=== PATIENT | female | born 1950 | race Caucasian/White ===

== ENCOUNTER → 2016-06-10 18:28 | Outpatient (CLI) | payer OTHER ==
[2014-04-05 07:46] VITALS: BMI 33.1
[~2016-06-10 18:28] MED LIST: ASPIRIN EC81 M1 PO; CALCIUM 600+D T1 TA1 PO; CELEXA20 MG PO; CHELATED MAGNESIUM PO; CO Q-10200 MG PO; EVISTA60 MG PO; FLAXSEED OIL1000 MG PO; GLUCOSAMINE & C1 CAP PO; IMITREX100 MG PO; MIRAPEX0.5 MG PO; NEXIUM40 MG PO; PRILOSEC20 MG PO; TUMERIC CURCUMIN PO; VITAMIN B-12500 MC1 PO; VITAMIN B-625 MG PO; VITAMIN D2000 UNIT PO
== END | disposition home or self-care (01) ==
LOC: D.MAMMO 15:45
DX: Z12.31 Encounter for screening mammogram for malignant neoplasm of breast (principal)

== ENCOUNTER → 2016-07-07 12:43 | Outpatient (CLI) | payer OTHER ==
[2014-04-05 07:46] VITALS: BMI 33.1
--- NOTE | 2016-07-09 07:57 | EC ---
PATIENT:DIMITRY CROSS DATE OF SERVICE: 07/07/16 SEX: F MEDICAL RECORD: [id number] DATE OF : 54 LOCATION:[facility] AGE OF PATIENT: 66 ADMISSION DATE: 07/07/16 REFERRING PHYSICIAN: INTERPRETING PHYSICIAN: SANJEEV JIMÉNEZ MD ECHOCARDIOGRAM REPORT ECHO CHARGES 4 ECHO COMPLETE CLINICAL DIAGNOSIS: HTN/AORTIC ECTASIA ECHOCARDIOGRAPHIC MEASUREMENTS (adult normal given) AC root (d.<3.7cm) 3.2 LV Septum d (<1.2 cm> 1.6 Valve Excursion 1.4 LV Septum (systole) 2.1 Left Atria (s.<4.0cm> 2.7 LVPW d(<1.2cm) 1.2 RV (d.<2.3cm) 2.3 LVPW (sytole) 1.9 LV diastole(<5.6CM) 5.4 MV E-F(>70mm/sec) LV systole 3.1 LVOT Diameter 1.9 MV exc.(>10mm) Est.ejection fraction (50-75%) Pericardial Effusion N DOPPLER: LVIT A 69.0 E 136 LA RVSP 44.3 LVOT 164 AOP1/2T Asc. Ao 225 RVOT 65.0 RA PA 107 AV Gradient Peak 20.2 AV Mean 11.0 AV Area 1.7 MV Gradient Peak 8.6 MV Mean 2.4 MV Area COMMENTS: Fireproof Door Assembler: Jefe MONREALOE Kiln Remover:Jefe Jiménez TAPE# PACS DATE OF SERVICE: 07/07/2016 ECHOCARDIOGRAM FINDINGS: 1. Left ventricular chamber size is within normal limits. Left ventricular systolic function is normal. Overall ejection fraction estimated at 65%. 2. Left atrium, right atrium, and right ventricular chamber sizes are within normal limits. 3. Valvular structures have normal structure and motion. ECHOCARDIOGRAM REPORT [id number] DIMITRY CROSS 4. Doppler interrogation reveals mild mitral regurgitation. Mild tricuspid regurgitation. No other valvular insufficiency or stenosis. 5. No evidence of pericardial effusion or left ventricular thrombus. Pulmonary systolic pressure; however, is mildly elevated estimated at 44 mmHg. TRANSINT:[id number] Voice Confirmation ID: [id number] DOCUMENT ID: [id number] SANJEEV JIMÉNEZ MD at 0757 CC: [id number] DICTATION DATE: 07/08/16 1011 FOOD ORDER DELIVERY RUNNER: 07/09/16 0037 DEP CLI 07/07/16 [id number] [place] [address]
== END | disposition home or self-care (01) ==
LOC: D.ECHO 12:43
DX: I10 Essential (primary) hypertension (principal); R05 Cough; I77.819 Aortic ectasia, unspecified site

== ENCOUNTER 2016-12-24 07:51 | Outpatient (CLI) | payer OTHER ==
--- NOTE | ~2016-12-24 | HEMODYNAMI ---
PATIENT:DIMITRY CROSS MEDICAL RECORD: [id number] : 54 LOCATION:[facility] ADMISSION DATE: 12/24/16 Generatedon:12/24/201611:30 Patient name: DIMITRY CROSS Patient #: [id number] : 1950 Date of study: 12/24/2016 Page: Of Hemodynamic Procedure Report Patient Data Patient Demographics Procedure consent was obtained First Name: DIMITRY Gender: Female Last Name: TAY : 1950 Middle Initial: KARL Age: 66 year(s) Patient #: [id number] Race: SSN: [id number] Additional ID: [id number] Contact details Address: [address] State: [place] City: [place] Zip code: [address] Admission Admission Data Admission Date: 12/24/2016 Admission Time: 7:51 Lab Results Lab Result Date: 12/24/2016 Lab Result Time: 0:00 Biochemistry Name Units Result Min Max BUN mg/dl 18 --(---*)-- 7 18 Creatinine mg/dl 0.9 --(-*--)-- 0.6 1.3 CBC Name Units Result Min Max Hemoglobin g/dl 13 -*(----)-- 13.5 17.5 Procedure Procedure Types Cath Procedure Diagnostic Procedure C [facility] w/Coronaries Miscellaneous Procedures Moderate Sedation up to 15 minutes Procedure Description Procedure Date Procedure Date: 12/24/2016 Procedure Start Time: 11:15 Procedure End Time: 11:28 Procedure Staff Name Function Robert Jiménez MD Performing Physician Leyda Mccoy RT Scrub Felicita Peters RN Nurse Randi Gordon RT Monitor Indication Angina Procedure Data Cath Procedure Fluoroscopy Diagnostic fluoroscopy Total fluoroscopy Time: 1.7 time: 1.7 min min Diagnostic fluoroscopy Total fluoroscopy dose: 339 dose: 339 mGy mGy Contrast Material Contrast Material Type Amount (ml) Isovue 300 49 Entry Location Entry Primary Successful Side Size Upsize Upsize Entry Closure Hitchcock ccessful Closure Location (Fr) 1 (Fr) 2 (Fr) Remarks Device Remarks Radial Right 6 Fr Mechanical artery Short Compression Femoral Right 5 Fr Vascade artery Closure System Estimated blood loss: 5 ml Diagnostic catheters Device Type Used For End Catheter Placement Diagnostic Terumo 5Fr Multi-vessel Logan 110cm catheter Angiography Diagnostic Infinity 5Fr Left Coronary JL 5 catheter Angiography Procedure Complications No complications Procedure Medications Medication Administration Route Dosage Oxygen NC 2 l/min Lidocaine 2% added to field 20 Heparin Flush Bag added to field 2 bags (1000units/500ml NS) 0.9% NaCl I.V. 100 ml/hr Versed I.V. 1 mg Fentanyl I.V. 50 mcg Versed I.V. 1 mg Fentanyl I.V. 50 mcg Fentanyl I.V. 50 mcg Radial Cocktail I.A. 1 syringe (Verapomil 2mg/Nitro 400mcg/Heparin 1500units) Fentanyl I.V. 50 mcg Hemodynamics Rest HGB: 13 (g/dl) Heart Rate: 61 (bpm) Pressure Samples Time Site Value (mmHg) Purpose Heart Use Rate(bpm) 11:21 LV 54/4,1 Snapshot 66 Snapshots Pre Cath Intra NCS Post Cath Vital Signs Time Heart Resp SPO2 etCO2 NIBP (mmHg) Rhythm Pain Sedation Rate (ipm) (%) (mmHg) Status Level (bpm) 10:52:00 63 18 97 38.8 115/70(101) NSR 0 (11) 10(A) , No pain 10:56:10 61 19 94 37.3 113/74(87) NSR 0 (11) 10(A) , No pain 11:00:20 60 16 96 39.6 113/71(92) NSR 0 (11) 10(A) , No pain 11:04:30 62 17 96 35.8 112/67(89) NSR 0 (11) 10(A) , No pain 11:08:40 59 22 96 25.3 104/68(80) NSR 0 (11) 10(A) , No pain 11:12:45 59 16 95 38.8 103/69(87) NSR 0 (11) 9(A) , No pain 11:16:51 61 15 95 37.3 105/67(83) NSR 0 (11) 9(A) , No pain 11:20:59 66 14 93 35.8 102/64(84) NSR 0 (11) 9(A) , No pain 11:25:05 67 16 94 37.3 109/68(85) NSR 0 (11) 10(A) , No pain Medications Time Medication Route Dose Verified Delivered Reason Notes Effectiveness by by 10:50:24 Oxygen NC 2 l/min Robert Buffie used for Tino Peters RN procedure 10:50:31 Lidocaine 2% added 20ml Robert Buffie used for to vial Tino Peters RN procedure field 10:50:38 Heparin Flush added 2 bags Robert Buffie used for Bag to Tino Peters RN procedure (1000units/500ml field NS) 10:50:47 0.9% NaCl I.V. 100 Robert Buffie Per ml/hr Tino Peters RN physician 11:06:39 Versed I.V. 1 mg Robert Mims for sedation Tino Peters RN 11:06:44 Fentanyl I.V. 50 mcg Robert Mims for sedation Tino Peters RN 11:13:58 Versed I.V. 1 mg Robert Marcie for sedation Tion Peters RN 11:14:03 Fentanyl I.V. 50 mcg Robert Mims for sedation Tino Peters RN 11:17:02 Radial Cocktail I.A. 1 Robert Jones for (Verapomil syringe Tino Jiménez MD vasodilation 2mg/Nitro 400mcg/Heparin 1500units) 11:17:23 Fentanyl I.V. 50 mcg Robert Mims for sedation Tino Peters RN 11:24:16 Fentanyl I.V. 50 mcg Robert Jones for sedation Tino Jiménez MD Procedure Log Time Note 10:24:07 Informed consent obtained and on chart 10:24:30 Diagnostic Cath Status : Elective 10:25:26 Indication : Angina 10:26:00 Leyda SPEARS(R) sent for patient. Start room use. 10:26:03 Time tracking: Regular hours 10:26:08 Plan of Care:Hemodynamics will remain stable., Cardiac rhythm will remain stable., Comfort level will be maintained., Respiratory function will remain adequate., Patient/ family verbilizes understanding of procedure., Procedure tolerated without complication., Recovers from procedure without complications.. 10:43:26 Patient received from Pre/Post Procedure Room to CCL 2 Alert and oriented. Tansferred to table in Supine position. 10:43:27 Warm blankets applied, and kennedy hugger turned on for patient comfort. 10:43:27 Correct patient and procedure confirmed by team. 10:43:28 ECG and BP/O2 sat monitors applied to patient. 10:50:24 Oxygen 2 l/min NC was administered by Felicita Peters RN; used for procedure; 10:50:31 Lidocaine 2% 20ml vial added to field was administered by Felicita Peters RN; used for procedure; 10:50:38 Heparin Flush Bag (1000units/500ml NS) 2 bags added to field was administered by Felicita Peters RN; used for procedure; 10:50:47 0.9% NaCl 100 ml/hr I.V. was administered by Felicita Peters RN; Per physician; 10:50:52 Vital chart was started 10:55:43 Baseline sample Acquired. 10:55:48 Rhythm: sinus rhythm 10:55:50 Full Disclosure recording started 10:56:07 H&P Date Dictated: 12/15/2016 Within 30 days and on chart., H&P Addendum completed by physician on day of procedure. (MUST COMPLETE FOR ALL OUTPATIENTS). 10:56:08 Pre-procedure instructions explained to patient. 10:56:09 Pre-op teaching completed and patient verbalized understanding. 10:56:10 Family in waiting room. 10:56:11 Patient NPO since Midnight. 11:01:21 Is the patient allergic to Iodine/contrast media? No. 11:01:22 Was the patient premedicated? No 11:01:22 Is patient on blood thinner?Yes 11:01:25 ACC The patient was administered the following blood thiners within the last 24 hours: ACCPlavix 11:01:28 Patient diabetic? No. 11:01:33 Previous problem with sedation/anesthesia? No ? 11:01:35 Snore? Yes 11:01:36 Sleep apnea? Yes 11:01:37 Deviated septum? No 11:01:38 Opens mouth fully? Yes 11:01:40 Sticks out tongue? Yes 11:01:44 Airway obstruction? No ? 11:01:47 Dentures? No ? 11:01:51 Pre procedure: right dorsailis pedis pulse 2+ Normal; easily identifiable; not easily obliterated 11:01:57 Pre procedure: left dorsailis pedis pulse 2+ Normal; easily identifiable; not easily obliterated 11:02:08 Patient pain scale 0/10 ?. 11:02:19 IV patent on arrival in left forearm with 0.9% NaCl at [facility]. 11:05:08 Lab Result : BUN 18 mg/dl 11:05:08 Lab Result : Creatinine 0.9 mg/dl 11:05:08 Lab Result : Hemoglobin 13 g/dl 11:05:11 Lab results completed and on chart. 11:05:17 Right Radial & Right Groin area was prepped with chlora-prep and draped in sterile fashion 11:05:18 Alarms reviewed by R. N. 11:05:19 Sharps counted by scrub and verified by R.N. 11:05:20 Physician arrived 11:05:21 --------ALL STOP TIME OUT------ 11:05:21 Final Timeout: patient, procedure, and site verified with staff and physician. All members of the team are in agreement. 11:05:23 Right Radial & Right Groin site verified by team. 11:05:26 Physical assessment completed. ASA score P 2 - A patient with mild systemic disease as per Robert Jiménez MD. 11:05:30 Sedation plan: IV Moderate Sedation Versed, Fentanyl 11:05:54 Use device set Radial Dx 11:05:55 Acist Syringe opened to sterile field. 11:05:56 Medline Cath Pack opened to sterile field. 11:05:56 Bag Decanter opened to sterile field. 11:05:57 Terumo 6Fr Slender Glidesheath opened to sterile field. 11:05:57 St Andrey 260cm J .035 wire opened to sterile field. 11:05:58 Acist Hand Control opened to sterile field. 11:05:58 Acist Manifold opened to sterile field. 11:05:59 Tegaderm 4 x 4 opened to sterile field. 11:05:59 MBrace Wrist Support opened to sterile field. 11:06:39 Versed 1 mg I.V. was administered by Felicita Peters RN; for sedation; 11:06:44 Fentanyl 50 mcg I.V. was administered by Felicita Peters RN; for sedation; 11:13:58 Versed 1 mg I.V. was administered by Felicita Peters RN; for sedation; 11:14:03 Fentanyl 50 mcg I.V. was administered by Felicita Peters RN; for sedation; 11:15:38 Procedure started. 11:15:42 Local anesthetic to right radial artery with Lidocaine 2% by Robert Jiménez MD.INITIAL ACCESS ONLY 11:15:52 A 6 Fr Short sheath was inserted into the Right Radial artery 11:16:35 A Diagnostic Terumo 5Fr Logan 110cm catheter was advanced over the wire and used for Multi-vessel Angiography. 11:17:02 Radial Cocktail (Verapomil 2mg/Nitro 400mcg/Heparin 1500units) 1 syringe I.A. was administered by Robert Jiménez MD; for vasodilation; 11:17:23 Fentanyl 50 mcg I.V. was administered by Felicita Peters RN; for sedation; 11:18:46 Terumo TR Band Standard opened to sterile field. 11:18:55 Local anesthetic to right femoral artery with Lidocaine 2% by Robert Jiménez MD.ADDITIONAL ACCESS 11:19:08 Diagnostic Infinity 5Fr Multipack catheter opened to sterile field. 11:19:09 Terumo 5Fr Enterprise Sheath opened to sterile field. 11:19:36 A 5 Fr sheath was inserted into the Right Femoral artery 11:19:48 5 Fr pig guide catheter was inserted over the wire 11:21:09 LV hemodynamics recorded. 11:21:11 LV gram done using VALERIO 11:21:13 Injector settings: Ml/sec: 5, Volume: 15, 11:21:18 EF : 60 % 11:21:26 5 Fr jl 4 guide catheter was inserted over the wire 11:22:00 Catheter removed. unable to cannulate vessel. 11:22:12 A Diagnostic Infinity 5Fr JL 5 catheter was advanced over the wire and used for Left Coronary Angiography. 11:23:10 LCA angiography performed. 11:23:13 Injector settings: Ml/sec: 3, Volume: 6, 11:23:40 Catheter removed. 11:23:56 5 Fr 3drc guide catheter was inserted over the wire 11:24:16 Fentanyl 50 mcg I.V. was administered by Robert Jiménez MD; for sedation; 11:24:31 RCA angiography performed. 11:24:34 Injector settings: Ml/sec: 3, Volume: 6, 11:24:47 Catheter removed. 11:24:57 Sheath removed intact; hemostasis achieved with Vascade Closure System to the Right Femoral artery. 11:25:06 Sheath removed intact; hemostasis achieved with Mechanical Compression to the Right Radial artery. 11:25:08 Procedure ended.(Physican Out) 11:25:35 Fluoroscopy time 01.70 minutes. 11:26:08 Fluoroscopy dose: 339 mGy 11::08 Flurop Dose total: 339 11:26:41 Vascade 5Fr Closure Device opened to sterile field. 11:27:00 Contrast amount:Isovue 300 49ml. 11:27:02 Sharps counted by scrub and verified by R.N. 11:27:05 TR band inflated with 10cc of air. 11:27:06 Insertion/operative site no bleeding no hematoma. 11:27:10 Post-op/insertion site Right Femoral artery dressed using a 4 x 4 and Tegaderm. 11:27:14 Post right radial artery:stable 11:27:15 Post Procedure Pulses reassessed and unchanged 11:27:18 Post procedure rhythm: unchanged. 11:27:21 Estimated blood loss: 5 ml 11:27:29 Post procedure instruction explained to patient.Patient verbalizes understanding. 11:27:29 Patient needs reinforcement of post procedure teaching. 11:27:39 Procedure type changed to Cath procedure, Diagnostic procedure, LHC, LHC w/Coronaries, Miscellaneous Procedures, Moderate Sedation up to 15 minutes 11:27:40 Procedure and supply charges have been captured, reviewed, submitted and are correct. 11:27:44 Procedure Complication : No complications 11:28:04 Vital chart was stopped 11::04 See physician's report for complete and final results. 11:28:08 Report given to Pre/Post Procedure Room. 11:28:11 Patient transfered to Pre/Post Procedure Room with Stretcher. 11:28:13 Procedure ended. 11:28:13 Full Disclosure recording stopped 11:28:17 End room use (Document Last) Device Usage Item Name Manufacture Quantity Catalog Number Hospital Part Current Minim al Lot# / Charge Number Stock Stock Serial# Code [facility]ist [facility] 77617 765217 572666 956032 20 [employer] Medline Cardinal 1 [id number] 26356 493292 5 Cath Pack Health Bag Microtek 1 2002S 325407 43146 172538 5 [employer]oupons [employer] Terumo 6Fr Terumo 1 [id number] 958367 692644 022456 [address] St Andrey 1 562720 888263 834633 248514 30 260cm J .035 wire Acist Hand Acist 1 35750 806128 236276 343645 5 Control Medical Systems Inc Acist Acist 1 76897 450570 705275 300047 5 Manifold Medical Systems Inc Tegaderm 4 3M 1 1626W 163115 315115 787410 5 x 4 MBrace Advanced 1 140-0250-00 020443 19273 847888 5 Wrist Vascular Support Dynamics Diagnostic Terumo 1 40-4341 343680 849792 078975 5 Terumo 5Fr Logan 110cm catheter Terumo TR Terumo 1 [id number] 600777 904982 393827 40 Band Standard Diagnostic Cardinal 1 [id number] 186356 85934 647011 30 Infinity Health 5Fr Multipack catheter Terumo 5Fr Terumo 1 [id number] 236546 835811 206330 40 Enterprise Sheath Diagnostic Cardinal 1 [id number] 692125 079804 675704 5 Infinity Health 5Fr JL 5 catheter Vascade 5Fr Cardiva 1 [id number] 543385 51370 631709 10 [employer] Inc. Signature Audit Chandler Stage Time Signature Unsigned Intra-Procedure 12/24/2016 Randi Gordon 11:30:15 AM RT(R) Signatures Monitor : Randi Gordon RT Signature : Date : Time : [facility] [address] [place] [address]
[2016-12-24] MEDS ORDERED: HCTZ25 MG PO (08:04)
[2016-12-24] MEDS ORDERED: CELEBREX200 MG PO (08:04)
[2016-12-24] MEDS ORDERED: ZYRTEC10 MG PO (08:05)
[2016-12-24] MEDS ORDERED: RESTASIS EYE DR30 EA EACH EYE (08:07)
[2016-12-24] MEDS ORDERED: PLAVIX75 MG PO (08:11)
[2016-12-24 08:23] VITALS: BP 132/84; BMI 33.9
[2016-12-24 08:28] LABS: BASOPHILS 0.3 % (0-2); EOSINOPHILS 3.6 % (0-7); HEMATOCRIT 38.6 % (36.0-48.0); IMMATURE GRANULOCYTES 0.2 % (0-5); LYMPHOCYTES 35.8 % (15-50); MCH 31.6 pg (26.0-34.0); MCHC 33.7 g/dL (31.0-37.0); MCV 93.9 fL (80.0-100.0); MONOCYTES 8.5 % (2-11); NEUTROPHILS 51.6 % (40-80); PLATELET COUNT 291 10x3/uL (130-400); RBC 4.11 10x6/uL (4.00-5.40); RDW 12.9 % (11.5-14.5); WBC 5.9 10x3/uL (4.8-10.8)
[2016-12-24 08:49] LABS: ANION GAP 13.6 mmol/L (8-16); CALCIUM 9.4 mg/dL (8.5-10.1); CARBON DIOXIDE 26.3 mmol/L (21.0-32.0); CREATININE - SERUM 0.9 mg/dL (0.6-1.3); POTASSIUM - SERUM 3.9 mmol/L (3.5-5.1)
--- NOTE | 2016-12-24 12:21 | NUR ---
1150 LYING FLAT, ROOM AIR WITH NO DISTRESS. NSR RATE 65 WNO C/O CHEST PAIN. PULSES PALP X 4. R WRIST TR BAND C/D/I, R GROIN 5F VASCADE C/D/I WITH NO HEMATOMA OR BLEEDING. AT BEDSIDE. WILL CONTINUE TO MONITOR CLOSELY.
--- NOTE | 2016-12-24 13:21 | NUR ---
1315 HOB ELEVATED, PIV REMOVED FROM LEFT FOREARM WITH BANDAID APPLIED. 2CC AIR REMOVED FROM R WRIST TR BAND, IMMEDIATELY STARTED TO BLEED. 3CC AIR APPLIED. WILL MONITOR CLOSELY FOR BLEEDING. SITTING AT BEDSIDE DRINKING COFFEE WITH .
--- NOTE | 2016-12-24 13:46 | NUR ---
D/C ISNTRUCTIONS DISCUSSED WITH PATIENT AND AT BEDSIDE. R GRION REMAINS C/D/I W NO HEMATOMA OR BLEEDING. 2CC AIR REMOVED FROM R WRIST TR BAND.
--- NOTE | 2016-12-24 13:48 | NUR ---
AMBULATED TO BATHROOM TO VOID.
--- NOTE | 2016-12-24 14:03 | NUR ---
TR BAND COMPLETELY WEANED. 2X2 AND TEGADERM APPLIED. WHEELED OUT VIA WHEELCHAIR BY CATH TEAM.
--- NOTE | 2017-01-09 14:14 | OP ---
PATIENT NAME: DIMITRY CROSS MEDICAL RECORD: [id number] :54 LOCATION:[facility] ADMISSION DATE: SURGEON: SANJEEV NUNEZ MD DATE OF OPERATION: 12/24/2016 PROCEDURES: 1. Left heart catheterization. 2. Selective coronary angiography. 3. Left ventriculogram. DESCRIPTION OF PROCEDURE: After informed consent was obtained and after detailed explanation of risks, benefits as well as alternative therapies, the patient elected to proceed with angiogram and heart catheterization. The right femoral area was prepped and draped in normal sterile fashion. Right femoral artery was cannulated via modified Seldinger technique with placement of 6-Amharic sheath. All catheters exchanged through this sheath. FINDINGS: Left ventriculogram was performed in standard 30-degree VALERIO view, reveals good cardiac wall motion throughout all segments. Overall ejection fraction estimated 60%. SELECTIVE CORONARY ANGIOGRAPHY: Left main, left anterior descending, left circumflex, and right coronary artery are all smooth-walled vessels with no angiographic evidence of coronary artery disease. OVERALL IMPRESSION: 1. No angiographic evidence of coronary artery disease. 2. Normal left heart pressures. 3. Normal left ventricular systolic function. Chest pain is noncardiac in etiology. No further cardiac workup needs to be ascertained. TRANSINT:[id number] Voice Confirmation ID: [id number] DOCUMENT ID: [id number] SANJEEV NUNEZ MD at 1414 CC: [id number] DICTATION DATE: 12/24/16 1129 BREAD PANNER: 12/24/16 1211 DEP CLI 12/24/16 [place] [address]
== END 2016-12-24 14:04 | disposition home or self-care (01) ==
LOC: D.CATH 07:51
PROVIDERS: Internal Medicine Interventional Cardiology
DX: R07.89 Other chest pain (principal); Z01.812 Encounter for preprocedural laboratory examination

== ENCOUNTER → 2017-09-04 12:55 | Outpatient (CLI) | payer MEDICARE, OTHER ==
[~2017-09-04 12:55] MED LIST changes: +CELEBREX200 MG PO; +HCTZ25 MG PO; +PLAVIX75 MG PO; +RESTASIS EYE DR30 EA EACH EYE; +ZYRTEC10 MG PO
== END | disposition home or self-care (01) ==
LOC: D.MRI 12:55
DX: M54.5 Low back pain (principal)

== ENCOUNTER → 2017-09-22 08:27 | Outpatient (CLI) | payer MEDICARE, OTHER ==
--- NOTE | ~2017-09-22 | EC ---
PATIENT:DIMITRY CROSS DATE OF SERVICE: 09/22/17 SEX: F MEDICAL RECORD: [id number] DATE OF : 54 [facility] AGE OF PATIENT: 67 ADMISSION DATE: 09/22/17 REFERRING PHYSICIAN: INTERPRETING PHYSICIAN: SANJEEV JIMÉNEZ MD ECHOCARDIOGRAM REPORT ECHO CHARGES 4 ECHO COMPLETE Date: 09/22 CLINICAL DIAGNOSIS: HYPERTENSION ECHOCARDIOGRAPHIC MEASUREMENTS (adult normal given) AC root (d.<3.7cm) 2.2 cm LV Septum d (<1.2 cm> 1.1 cm Valve Excursion 1.0 cm LV Septum (systole) 1.2 cm Left Atria (s.<4.0cm> 2.8 cm LVPW d(<1.2cm) 1.0 cm RV (d.<2.3cm) 2.6 cm LVPW (sytole) 1.5 cm LV diastole(<5.6CM) 4.5 cm MV E-F(>70mm/sec) cm LV systole 3.1 cm LVOT Diameter 1.9 cm MV exc.(>10mm) cm Est.ejection fraction (50-75%) % DOPPLER: LVIT cm/sec A 68 cm/sec E 68 cm/sec LA cm/sec RVSP 32.7 mmHg LVOT 98 cm/sec AOP1/2T m/s Asc. Ao 123 cm/sec RVOT 54 cm/sec RA cm/sec PA 57 cm/sec AV Gradient Peak 6.1 mmHg AV Mean 3.3 mmHg AV Area 1.9 cm MV Gradient Peak 3.0 mmHg MV Mean 1.2 mmHg MV Area cm COMMENTS: Airplane Charter Clerk: Sybil BOOTHE Towel Weaver: 1 Dr. Jiménez TAPE# PACS Pericardial Effusion N DATE OF SERVICE: 09/22/2017 DATE OF SERVICE: 09/22/2017 PROCEDURE: Echocardiogram. FINDINGS: 1. Left ventricular chamber size is within normal limits. Left ventricular systolic function is normal. Overall ejection fraction is estimated at 60%. 2. Left atrium, right atrium, and right ventricle chamber sizes are within ECHOCARDIOGRAM REPORT [id number] DIMITRY CROSS normal limits. 3. Valvular structures have normal structure and motion. 4. Doppler interrogation reveals mild tricuspid regurgitation, no other valvular insufficiency or stenosis and pulmonary systolic pressure is normal estimated at 33 mmHg. 5. No evidence of pericardial effusion or left ventricular thrombus. TRANSINT:[id number] Voice Confirmation ID: [id number] DOCUMENT ID: [id number] SANJEEV JIMÉNEZ MD at 1713 CC: [id number] DICTATION DATE: 09/22/17 1242 HAND COPER: 09/22/17 1252 DEP CLI 09/22/17 [place] [id number] [place] [id number]
== END | disposition home or self-care (01) ==
LOC: D.ECHO 08:27
DX: I10 Essential (primary) hypertension (principal)

== ENCOUNTER → 2018-06-14 09:24 | Outpatient (CLI) | payer MEDICARE, OTHER | END | disposition home or self-care (01) | LOC: D.MRI 09:24 | PROVIDERS: ATTEND Neurological Surgery | DX: M43.16 Spondylolisthesis, lumbar region (principal); M48.062 Spinal stenosis, lumbar region with neurogenic claudication ==

== ENCOUNTER 2018-09-21 11:30 | Outpatient (CLI) | payer MEDICARE, OTHER | END 2018-09-21 12:00 | disposition home or self-care (01) | LOC: D.MAMMO 11:30 | PROVIDERS: ATTEND Family Medicine | DX: Z12.31 Encounter for screening mammogram for malignant neoplasm of breast (principal) ==

== ENCOUNTER → 2018-09-24 10:57 | Outpatient (CLI) | payer MEDICARE, OTHER | END | disposition home or self-care (01) | LOC: D.CT 10:57 | PROVIDERS: ATTEND Internal Medicine Cardiovascular Disease | DX: I77.819 Aortic ectasia, unspecified site (principal) ==

== ENCOUNTER 2019-10-14 18:03 | Outpatient (CLI) | payer MEDICARE, OTHER | END 2019-10-14 23:59 | disposition home or self-care (01) | LOC: D.MAMMO 18:03 | PROVIDERS: ATTEND Clinical Nurse Specialist Adult Health | DX: Z12.31 Encounter for screening mammogram for malignant neoplasm of breast (principal) ==

== ENCOUNTER → 2019-10-25 09:08 | Outpatient (CLI) | payer MEDICARE, OTHER | END | disposition home or self-care (01) | LOC: D.CT 10-20 13:00 | PROVIDERS: ATTEND Internal Medicine Cardiovascular Disease | DX: I77.819 Aortic ectasia, unspecified site (principal) ==